=== PATIENT | male | born 1950 | race Caucasian/White ===

== ENCOUNTER 2023-11-03 16:32 | Emergency (ER) | payer BC, SELFPAY ==
[2023-11-03 16:39] VITALS: BP 165/89
--- NOTE | 2023-11-03 17:44 | ED.GENMED ---
History of Present Illness
General
Chief Complaint: Musculo-Skeletal Complaint
Time Seen by Provider: 11/03/23 17:32
Travel History
Have you had any contact with someone who has COVID-19?: No
Do you have any symptoms of coronavirus? Fever > 100 degrees, chills, cough, shortness of breath, sore throat, loss of taste or smell, muscle aches, or headache?: No
History of Present Illness
History of Present Illness:
73-year-old male presents the emergency department for evaluation of left-sided neck and shoulder pain that began abruptly while swinging a golf club. Patient notes he has had mild pain to this area for the past 2 to 3 days but during his backswing
today felt sudden pain. Pain does not radiate down the arm and he denies any numbness or tingling. No chest pain or shortness of breath. Pain worsens with any movement of the head or neck took an oxycodone without relief
Past History
Past History
ED Past Medical History: Other (Nephrectomy for kidney cancer)
ED Past Surgical History: Other (Nephrectomy for kidney cancer)
Social History
Tobacco: Non-smoker
Alcohol: None
Drug: None
Personal:
Living: with family
Employment: Employed
Family History
Family History: CAD
Review of Systems
Review of Systems
Allergies reviewed?: Yes
All Other Systems: ROS reviewed and negative except as documented in HPI and ROS
Phy Exam
Physical Exam
Physical Exam:
GEN: Well appearing, NAD, WDWN
HEENT: Oral mucosa moist, no scleral icterus, no nasal congestion
Cardiac: Regular rate
Lung: No respiratory distress, no tachypnea
MSK: No gross deformity or injuries. Left trapezius appears to be in spasm, tender and taut to palpation. Any movement of the head/neck/left shoulder elicits pain.
Skin: Good color, no pallor or jaundice, no rashes
Neuro: AO x3; CN II-XII grossly intact. BUE strength 5/5 in all ball, sensation intact and symmetric. BLE strength 5/5 in all ball, sensation intact and symmetric
Psych: Calm, cooperative
Course
Orders/Labs/Results
Orders:
Orders
11/03/23 17:43
Diazepam [Valium] 5 mg PO NOW STA
Ketorolac [Toradol] 30 mg IM NOW STA
Vital Signs
Initial and Last Documented VS:
Initial Vital Signs
Temp Pulse Resp BP Pulse Ox
97.5 F 63 20 165/89 97
11/03/23 16:39 11/03/23 16:39 11/03/23 16:39 11/03/23 16:39 11/03/23 16:39
Last Documented Vital Signs
Temp Pulse Resp BP Pulse Ox
97.5 F 63 20 165/89 97
11/03/23 16:39 11/03/23 16:39 11/03/23 16:39 11/03/23 16:39 11/03/23 16:39
MDM/Problems Addressed
MDM/Problems Addressed:
He has no headache, vertigo, or neurologic symptoms concerning for vertebral artery dissection. He was treated supportively for trapezius muscle spasm with rapid improvement in symptoms. Discussed further supportive care
*Critical Care Note
Total Time (30-74mins, 75-104mins- exclusive of procedures): Not Applicable
ED Attending Note
-
Portions of this chart may have been created with voice recognition software.� Occasional wrong word or��sound alike� substitutions may have occurred due to the inherent limitations of voice recognition software.
Discharge Plan
Departure
Patient Disposition: Home (Routine Discharge)
Date of Disposition: 11/03/23
Time of Disposition: 18:53
Patient with high blood pressure during this ER visit?: No
Discharge Problem:
Spasm of left trapezius muscle
Instructions: Muscle Spasm ED
Prescriptions:
New
diazepam 2 mg tablet
2 - 4 mg PO TID PRN (Reason: muscle spasm) Qty: 15 0RF
diclofenac sodium 75 mg tablet,delayed release (DR/EC)
75 mg PO BID PRN (Reason: Pain) Qty: 20 0RF
No Action
levothyroxine 75 MCG tablet
75 mcg PO DAILY
trazodone 100 MG tablet
100 mg PO HS
duloxetine 30 MG capsule,delayed release(DR/EC)
90 mg PO DAILY
eszopiclone [Lunesta] 3 MG tablet
3 mg PO HS
Referrals:
Yo Chung DO [Family Provider] -
Interventions
Interventions:
*Risk Screen - Suicide Last Done: 11/03/23 16:39
*General Assessment Last Done: 11/03/23 16:39
*Neglect/Abuse Screening Last Done: 11/03/23 16:39
ED- Fall Risk Assessment Last Done: 11/03/23 18:54
*ED COVID-19 Vaccine History Last Done: 11/03/23 17:12
*Nursing Disposition Last Done: 11/03/23 18:54
ED-Musculoskeletal Assessment Last Done: 11/03/23 17:12
Discharge Date and Time
Discharge Date/Time: 11/03/23 18:56
Print Language: GUINEAN
[2023-11-03] MEDS: VALIUM 5 MG PO (18:06)
[2023-11-03] MEDS: TORADOL 30 MG IM (18:06)
== END 2023-11-03 18:56 | disposition home or self-care (01) ==
LOC: EMR 16:32
PROVIDERS: EMERGENCY PHYSICIAN Emergency Medicine; FAMILY PHYSICIAN Family Medicine
DX: M62.838 Other muscle spasm (principal); M25.512 Pain in left shoulder; Z82.49 Family history of ischemic heart disease and other diseases of the circulatory system; Z85.528 Personal history of other malignant neoplasm of kidney; Z90.5 Acquired absence of kidney
CPT/HCPCS: 99282